=== PATIENT | male | born 1960 | race Caucasian/White ===

== ENCOUNTER 2022-11-19 09:20 | Emergency (ER) | payer OTHER ==
[~2022-11-19] VITALS: Ht 180.3 cm; Wt 83.9 kg
[2022-11-19] MEDS ORDERED: LEVOTHYROXINE13 MCG PO (09:31)
[2022-11-19] MEDS ORDERED: ZESTRIL2.5 MG (09:31)
== END 2022-11-19 15:34 | disposition home or self-care (01) ==
LOC: ER 09:20
DX: R51.9 Headache, unspecified (principal); E03.9 Hypothyroidism, unspecified; I10 Essential (primary) hypertension; J32.8 Other chronic sinusitis; Z88.2 Allergy status to sulfonamides; Z85.46 Personal history of malignant neoplasm of prostate
CPT/HCPCS: 36415; 70486; 96372; 99284; J1885